=== PATIENT | male | born 1990 | race Caucasian/White ===

== ENCOUNTER 2017-09-08 05:40 | Day surgery (SDC) | payer OTHER ==
[2017-09-08] MEDS ORDERED: ACETAMINOPHEN 1000 MG/100 ML IVPB (07:00)
[2017-09-08] MEDS ORDERED: METOCLOPRAMIDE 10 MG INJ (07:00)
[2017-09-08] MEDS ORDERED: PROPOFOL 20 ML (07:18)
[2017-09-08] MEDS ORDERED: ROCURONIUM 50 MG INJ ×2 (07:18→09:47)
[2017-09-08] MEDS ORDERED: MIDAZOLAM 1 MG/ML 2 ML INJ ×3 (07:18→09:12)
[2017-09-08] MEDS ORDERED: ROPIVACAINE 0.5 % 30 ML VIAL (07:19)
[2017-09-08] MEDS ORDERED: morphine 2 MG INJ IV (07:30)
[2017-09-08] MEDS: POLYMYXIN/BACITRACIN 1L IRRIG (08:28)
[2017-09-08] MEDS ORDERED: ONDANSETRON 4 MG INJ (08:48)
[2017-09-08] MEDS ORDERED: DEXAMETHASONE 4 MG/ML 1 ML INJ (08:49)
[2017-09-08] MEDS ORDERED: KETOROLAC 30 MG INJ (08:49)
[2017-09-08] MEDS ORDERED: LABETALOL HCL 20MG INJ IV (09:00)
[2017-09-08] MEDS ORDERED: EPHEDrine SULFATE 50 MG/5 ML SYG IV (09:00)
[2017-09-08] MEDS ORDERED: METOCLOPRAMIDE 10 MG INJ IV (09:00)
[2017-09-08] MEDS ORDERED: DIPHENHYDRAMINE 50 MG INJ IV (09:00)
[2017-09-08] MEDS ORDERED: FENTAnyl 50 MCG/ML VIAL IV ×3 (09:00)
[2017-09-08] MEDS ORDERED: HYDROmorphONE (0.2 MG/ML) 10ML SYG IV ×2 (09:00)
[2017-09-08] MEDS ORDERED: OXYCODONE/ACETAMINOPHEN (5/325) TAB PO ×2 (09:00)
[2017-09-08] MEDS ORDERED: SUGAMMADEX SODIUM 200 MG/2 ML VIAL IV (09:42)
[2017-09-08] MEDS: ROPIVACAINE 0.5 % 30 ML VIAL (09:53)
[2017-09-08] MEDS: ONDANSETRON 4 MG INJ IV (10:50)
[2017-09-08] MEDS: MEPERIDINE 25 MG INJ IV (10:50)
[2017-09-08] MEDS: HYDROmorphONE (0.2 MG/ML) 10ML SYG IV (11:18)
== END 2017-09-08 12:00 | disposition home or self-care (01) ==
LOC: SDS 05:40
DX: S83.281A Other tear of lateral meniscus, current injury, right knee, initial encounter (principal); S83.511A Sprain of anterior cruciate ligament of right knee, initial encounter; X58.XXXA Exposure to other specified factors, initial encounter
CPT/HCPCS: 29881